=== PATIENT | male | born 1980 | race Hispanic/Latino ===

== ENCOUNTER → 2019-04-22 | Outpatient (CLI) | payer MEDICAID ==
[~2019-04-22] MED LIST: CEPH750C9 PO; OXYB10TA2 PO; RIVA20TA PO
== END | disposition home or self-care (01) ==
LOC: SHCH 12:17
PROVIDERS: ATTEND Internal Medicine Cardiovascular Disease
DX: I73.9 Peripheral vascular disease, unspecified (principal); I82.429 Acute embolism and thrombosis of unspecified iliac vein; Z79.01 Long term (current) use of anticoagulants
CPT/HCPCS: 93978

== ENCOUNTER 2020-11-04 21:43 | Emergency (ER) | payer MEDICAID ==
[~2020-11-04 21:43] MED LIST changes: -OXYB10TA2 PO; +OXYB10TA30 PO
[2020-11-04 22:24] LABS: BASOPHILS % (AUTO) 0.4 % (0.0-5.0); EOSINOPHILS % (AUTO) 1.6 % (0.0-8.0); HEMATOCRIT 33.2 % (42-54); LYMPHOCYTES % (AUTO) 27.2 % (21.0-51.0); MEAN CORPUSCULAR HEMOGLOBIN 28.1 pg (27.0-33.0); MEAN CORPUSCULAR HGB CONC 33.1 g/dL (32.0-36.0); MEAN CORPUSCULAR VOLUME 84.7 fL (79-99); MONOCYTES % (AUTO) 7.7 % (3.0-13.0); NEUTROPHILS % (AUTO) 62.7 % (40.0-77.0); PLATELET COUNT (AUTO) 201 K/uL (130-400); RED BLOOD CELL COUNT(AUTO) 3.92 MIL/uL (4.50-6.20); RED CELL DISTRIBUTION WIDTH 13.8 % (11.0-15.5); WHITE BLOOD COUNT (AUTO) 7.4 K/uL (4.8-10.8)
[2020-11-04 22:38] LABS: CREATININE 0.8 mg/dL (0.5-1.5); POTASSIUM 3.5 mmol/L (3.5-5.1)
[2020-11-04 22:48] LABS: ALBUMIN 3.2 g/dL (3.5-5.0); BILIRUBIN,TOTAL 0.2 mg/dL (0.2-1.0); TOTAL PROTEIN, SERUM 7.8 g/dL (6.0-8.3)
[2020-11-04 22:58] LABS: PROTHROMBIN TIME 10.9 SEC (9.6-11.6)
[2020-11-05] MEDS ORDERED: SULFAMETHOX-TMP DS 800/160 TAB ONE (01:27)
== END 2020-11-05 01:36 | disposition home or self-care (01) ==
LOC: EDH 21:43
DX: L03.115 Cellulitis of right lower limb (principal); Z91.018 Allergy to other foods; Z86.718 Personal history of other venous thrombosis and embolism; Z79.899 Other long term (current) drug therapy
CPT/HCPCS: 36415; 73610; 80053; 83605; 83880; 84484; 85025; 85610; 85730; 87040; 93971

== ENCOUNTER → 2024-05-27 | Outpatient (CLI) | payer MEDICAID ==
[~2024-05-27] MED LIST changes: +IOHEXOL-350 75 ML VIAL IV ONE
== END | disposition home or self-care (01) ==
LOC: RAH 05-24 08:45
PROVIDERS: ATTEND Internal Medicine Cardiovascular Disease
DX: I73.9 Peripheral vascular disease, unspecified (principal); N28.89 Other specified disorders of kidney and ureter
CPT/HCPCS: 75635; Q9967

== ENCOUNTER → 2024-07-23 | Outpatient (CLI) | payer MEDICAID ==
[~2024-07-23] MED LIST changes: -IOHEXOL-350 75 ML VIAL IV ONE
--- NOTE | 2024-07-23 17:18 | HMCSR ---
APPROVED REPORT Bilateral Lower Extremity Venous Study for Venous Competence., DVT. Indications i87.1, i87.2 Vein Imaging CFV (R): Normal flow, augmentation and compression. No evidence of DVT. 9.5mm 606ms of reflux. SFJ (R): Normal flow, augmentation and compression. No evidence of DVT. FEM (R): Normal flow, augmentation and compression. No evidence of DVT. POP (R): Normal flow, augmentation and compression. No evidence of DVT. DFV (R): Normal flow, augmentation and compression. No evidence of DVT. PTV (R): Normal flow, augmentation and compression. No evidence of DVT. Peroneals (R): Normal flow, augmentation and compression. No evidence of DVT. CFV (L): Normal flow, augmentation and compression. No evidence of DVT. 11.0mm 0.0ms of reflux. SFJ (L): Normal flow, augmentation and compression. No evidence of DVT. FEM (L): Normal flow, augmentation and compression. No evidence of DVT. POP (L): Normal flow, augmentation and compression. No evidence of DVT. DFV (L): Normal flow, augmentation and compression. No evidence of DVT. PTV (L): Normal flow, augmentation and compression. No evidence of DVT. Peroneals (L): Normal flow, augmentation and compression. No evidence of DVT. Technologist Impression Deep veins of the bilateral lower extremities appear patent and compressible without trombus. No deep venous reflux seen. Superficial venous insuficieny noted RSSV RGSV junciton 2.8mm 0.0ms thigh 5.0mm 460ms knee 3.9mm 333ms calf 3.3mm 0.0ms RSSV prox 5.7mm 394ms mid 4.9mm 544ms LGSV junction 5.6mm 0.0ms Not seen distally LSSV prox 3.5mm 0.0ms mid 3.3mm 0.0ms Conclusion Superficial venous insuficieny noted RSSV No DVT Conclusion Superficial venous insuficieny noted RSSV No DVT
--- NOTE | 2024-07-23 17:19 | HMCSR ---
APPROVED REPORT EXAM: Two-dimensional and M-mode echocardiogram with Doppler and color Doppler. INDICATION ICD: R60.9 Edema, unspecified 2D Dimensions IVSd1.1 (0.7-1.1cm)LVEF(%)52.5 (>50%)LVED Vol(simp.)137.0 mL LVDd5.3 (3.8-5.6cm)FS(%)27 %LVES Vol(simp.)63.0 mL PWd1.1 (0.7-1.1cm)Ao Root(2D)3.5 (2.0-3.7cm)LVEF(%, simp.)54 % LVDs3.9 (2.5-4.0cm)IVC diam2.7 cmLA ESV INDEX (BP)30.75 mL/m2 Aortic Valve AoV Vmax1.6 m/Ignacio Peak GR9.7 mmHgLVOT Vmax1.1 m/s AoV VTI0.4 mAo Mean GR5.4 mmHgLVOT VTI0.29 m Mitral Valve MV E Frwy996.4 cm/sDECEL Irnn954 ms MV A Vmax51.4 cm/sP 1/2 T45 ms E/A ratio2.2MVA (PHT)4.9 cm2 TDI E/E' Dynkmf50.4E/E' Vejfpfl55.3 Tricuspid Valve RAP (EST) 8 mmHg Left Ventricle The left ventricle structure and function is normal. There is normal LV segmental wall motion. There is borderline to mild concentric left ventricular hypertrophy. LVEF is 50-55%. Indeterminate diastoli c dysfunction. Right Ventricle Right ventricle is not well visualized. Cannot assess right ventricular systolic function. Atria The left atrium size is normal. Right atrium is not well visualized. Aortic Valve Aortic valve is not well visualized but no significant valvular abnormalities noted. No aortic regurg itation is present. There is no aortic valvular stenosis. Mitral Valve Mitral valve leaflets appear normal. Mitral regurgitation is trace. There is no mitral valve stenosis . Tricuspid Valve Tricuspid valve is not well visualized. Pulmonic Valve Pulmonic valve is not well visualized. Great Vessels The aortic root is normal in size. IVC is dilated and collapses >50% with inspiration. Pericardium No pericardial effusion. Other Information Quality : Technically Limited Technically limited study due to body habitus. Conclusion LVEF is 50-55%. There is normal LV segmental wall motion. There is borderline to mild concentric left ventricular hypertrophy. Mitral regurgitation is trace. The aortic root is normal in size. No pericardial effusion.
== END | disposition home or self-care (01) ==
LOC: SHCH 09:02
PROVIDERS: ATTEND Internal Medicine Cardiovascular Disease
DX: I51.7 Cardiomegaly (principal); I51.89 Other ill-defined heart diseases; I87.2 Venous insufficiency (chronic) (peripheral); I87.1 Compression of vein; R06.09 Other forms of dyspnea
CPT/HCPCS: 93306; 93970

== ENCOUNTER 2024-10-04 07:55 | Day surgery (SDC) | payer MEDICAID ==
[2024-10-02 08:57] LABS: BASOPHILS # (AUTO) 0.02 K/uL (0.00-0.20); BASOPHILS % (AUTO) 0.3 % (0.0-5.0); EOSINOPHILS # (AUTO) 0.18 K/uL (0.00-0.70); EOSINOPHILS % (AUTO) 2.8 % (0.0-8.0); HEMATOCRIT 37.4 % (42-54); IMMATURE GRANULOCYTE ABSOLUTE 0.02 K/uL (0-1); LYMPHOCYTES # (AUTO) 1.7 K/uL (1.0-4.8); LYMPHOCYTES % (AUTO) 26.8 % (21.0-51.0); MEAN CORPUSCULAR HGB CONC 31.3 g/dL (32.0-36.0); MEAN CORPUSCULAR VOLUME 86.4 fL (79-99); MONOCYTES # (AUTO) 0.4 K/uL (0.1-1.0); MONOCYTES % (AUTO) 5.7 % (3.0-13.0); NEUTROPHILS # (AUTO) 4.1 K/uL (1.8-7.7); NEUTROPHILS % (AUTO) 64.1 % (40.0-77.0); PLATELET COUNT (AUTO) 230 K/uL (130-400); RED BLOOD CELL COUNT(AUTO) 4.33 MIL/uL (4.50-6.20); RED CELL DISTRIBUTION WIDTH 14.4 % (11.0-15.5); WHITE BLOOD COUNT (AUTO) 6.4 K/uL (4.8-10.8)
[2024-10-02 09:07] LABS: CREATININE 0.5 mg/dL (0.5-1.3)
[2024-10-02 09:08] LABS: INR 1.02 (0.85-1.15); PROTHROMBIN TIME 10.8 SEC (9.6-11.6)
[2024-10-02 09:31] VITALS: BP 134/54; PULSE 50; RESP 18; TEMP 98.6
[~2024-10-04] VITALS: Ht 170.2 cm; Wt 124.7 kg
[~2024-10-04 07:55] MED LIST changes: +ACET-2247 PO; -CEPH750C9 PO; +HEParin 10,000 UNIT/10ML (1,000 UNIT/ML) VIAL ONE; +HEParin-NS 1,000 UNIT/500 ML 0 ML IV ONE; +IOHEXOL 350 MG/ML 100ML INFUS..BTL IV ONE; +LIDOCAINE HCL 400MG/20ML VIAL ONE; +MAGNESIUM PO; +NITROGLYCERIN 50MG VIAL ONE; -OXYB10TA30 PO; +OXYB5TAB20 PO; +RIVA10TA PO; -RIVA20TA PO; +VERAPAMIL HCL 2.5 MG/ML VIAL ONE; +VITAD50000 PO; +[UNRECOGNIZED DRUG - OTHER] TP
[2024-10-04 08:20] VITALS: BP 126/52; PULSE 62; RESP 18; TEMP 98.4
[2024-10-04] MEDS ORDERED: LIDOCAINE HCL 400MG/20ML VIAL ONE (10:01)
[2024-10-04] MEDS ORDERED: NITROGLYCERIN 50MG VIAL ONE (10:02)
[2024-10-04] MEDS ORDERED: HEParin 10,000 UNIT/10ML (1,000 UNIT/ML) VIAL ONE (10:02)
[2024-10-04] MEDS ORDERED: HEParin-NS 1,000 UNIT/500 ML 1,000 ML IV ONE (10:02)
[2024-10-04] MEDS ORDERED: FENTanyl CITRate PF 50 MCG/1 ML 2ML VIAL ONE (10:02)
[2024-10-04] MEDS ORDERED: IODIXANOL 320 MG/ML 100 ML VIAL ONE ×2 (10:02→10:05)
[2024-10-04] MEDS ORDERED: MIDAZOLAM HCL 1 MG/ML 2ML VIAL ONE (10:03)
[2024-10-04] MEDS ORDERED: ATROPINE 1MG SYG IVP ONE (10:14)
--- NOTE | 2024-10-04 11:25 | PRN ---
Procedure Note INDICATION FOR PROCEDURE: [] Suspected iliac vein compression PROCEDURE: [] Conscious sedation Left common femoral vein sheath placement 9 [place] Bilateral common femoral venogram Intravascular ultrasound of IVC bilateral common iliac external iliac common femoral veins DATE OF PROCEDURE: October 04, 2024 SILVICULTURE TEACHER: Paulo Andrews MD, F.A.C.C. PROCEDURE NOTE: [] The patient brought to catheterization suite and prepped and draped in sterile fashion. An IV was started if not already in place and both groins were exposed for venous access. Ultrasound was used for guidance. Micro puncture kit was used to gain access. Modified Seldinger technique was utilized to place a 9 [place] sheath into left common femoral vein Venogram was performed Intravascular ultrasound was done over it glidewire Glidewire was then used and placed into the right common femoral vein via an Omni flush catheter. Venogram was performed on right side Omni flush catheter was removed and over wire and IVUS catheter was then placed to interrogate the right common femoral vein external iliac vein and common bri c vein At end of case sheath was pulled manual pressure was held no complications occurred FINDINGS: [] There was an area of compression on the left common iliac vein at 36% No compression noted on right iliac system IMPRESSION: [] Mild left common iliac vein compression PLAN: [] Conservative measures DC home later today PAULO ANDREWS MD Oct 04, 2024 11:25
[2024-10-04] MEDS ORDERED: DEXTROSE 50%-WATER 50 ML DISP.SYRIN IV PRN (11:30)
[2024-10-04] MEDS ORDERED: GLUCAGON 1MG KIT 1 MG ML IM PRN (11:30)
[2024-10-04 11:45] VITALS: BP 125/78; PULSE 46; RESP 18; TEMP 97
[2024-10-04 12:00] VITALS: BP 117/84; PULSE 48; RESP 18
[2024-10-04 12:15] VITALS: BP 103/56; PULSE 57; RESP 18
[2024-10-04 12:30] VITALS: BP 114/63; PULSE 54; RESP 18
[2024-10-04 12:45] VITALS: BP 107/59; PULSE 59; RESP 18
== END 2024-10-04 13:12 | disposition home or self-care (01) ==
LOC: DAH 07:55
PROVIDERS: ATTEND Internal Medicine Cardiovascular Disease
DX: I87.1 Compression of vein (principal); I87.2 Venous insufficiency (chronic) (peripheral); I73.9 Peripheral vascular disease, unspecified; R60.9 Edema, unspecified; R29.818 Other symptoms and signs involving the nervous system; G82.20 Paraplegia, unspecified; Z98.890 Other specified postprocedural states; Z79.01 Long term (current) use of anticoagulants; Z79.899 Other long term (current) drug therapy
CPT/HCPCS: 80048; 85025; 85610; 85730; 36415; 75822; 36012; 37252; 37253 ×5; C1769 ×2; C1894 ×2; C1753; J3010; J3490 ×2; J2250; J1644; Q9967; A4215; A4222; A4221; A4663; A4216; A4606; A4223 ×3; 99156; 99157; J0461